=== PATIENT | female | born 1940 | race Caucasian/White ===

== ENCOUNTER 2023-12-04 11:09 | Emergency (ER) | payer MEDICARE, SELFPAY ==
--- NOTE | ~2023-12-04 | XR_ITS ---
XR chest 2V DATE: 12/04/2023 12:52 INDICATION: Cough TECHNIQUE: PA and lateral views COMPARISON: None FINDINGS: Heart size is within normal range. Aortic calcification. There is patchy infiltrate and/or atelectasis in both lower lung zones, greater on the left. Consider bilateral pneumonia versus aspiration pneumonitis. There is mild elevation right leaf of diaphragm. No pleural effusion or pulmonary venous congestion o r pneumothorax. Surgical clips, right upper quadrant, consistent with cholecystectomy. Diffuse idiopathic skeletal hyperostosis of the thoracic spine. IMPRESSION: Patchy bilateral lower lung infiltrates, left greater than right Reviewed, dictated and finalized at location A. [employer]
[2023-12-04 11:35] VITALS: BP 148/63; PULSE 83; RESP 20; TEMP 36.8; O2SAT 95
--- NOTE | 2023-12-04 12:05 | ED.URI ---
HPI - URI/Sore Throat General Chief Complaint: Upper Respiratory Infection Stated Complaint: Cough Time Seen by Provider: 12/04/23 12:32 Source: patient and RN notes reviewed Mode of arrival: ambulatory Limitations: no limitations History of Present Illness HPI Narrative: 83-year-old female presents with concern for productive cough intermittent chills. Intermittent shortness of breath and chest tightness. She reports coughing makes her ribs and back hurt. She reports general body aches, headache, intermittent diarrhea. Reports she had a negative COVID test at home. MD elicited complaint: cough Related Data Home Medications Medication Instructions Recorded Confirmed apixaban 5 mg tablet (Eliquis) 5 mg PO BID 11/25/22 12/04/23 gabapentin 300 mg capsule 300 mg PO BID 11/25/22 12/04/23 lenalidomide 5 mg capsule 5 mg PO DAILY 11/25/22 12/04/23 (Revlimid) tolterodine 4 mg capsule,extended 4 mg PO DAILY 11/25/22 12/04/23 release 24 hr amlodipine 10 mg tablet 10 mg DAILY 12/04/23 12/04/23 benzonatate 200 mg capsule 200 mg PO DAILY 12/04/23 12/04/23 daratumumab 20 mg/mL intravenous 20 mg IV MONTHLY 12/04/23 12/04/23 solution loperamide 2 mg capsule 2 mg PO DAILY 12/04/23 12/04/23 tramadol 50 mg DAILY 12/04/23 12/04/23 zolpidem 10 mg tablet 10 mg PO QHS 12/04/23 12/04/23 Allergies Allergy/AdvReac Type Severity Reaction Status Date / Time No Known Allergies Allergy Verified 11/26/22 08:02 Review of Systems Review of Systems: CONSTITUTIONAL: Reports malaise, chills, sweats EYES: Denies visual changes, redness, or discharge. ENT: Reports rhinorrhea, congestion CARDIOVASCULAR: Denies chest pain, palpitations, or edema. RESPIRATORY: Reports productive cough, dyspnea. GASTROINTESTINAL: Denies abdominal pain, nausea, vomiting, diarrhea SKIN: Denies rash or itching. MUSCULOSKELETAL: Denies myalgia. NEUROLOGIC: Denies headache. All systems reviewed & are unremarkable except as noted in HPI and below PMFSH Past Medical History Medical History (Updated 12/04/23 @ 13:07 by Moon Lucas NP) History of blood clots History of cancer IBS (irritable bowel syndrome) Surgical History Surgical History (Updated 11/26/22 @ 08:21 by Derian Hinton MD) History of cataract surgery History of hernia repair History of hip surgery Trochanteric debridement with removal of bone spurs 2009 and 2017 Family History Family History Sibling Malignant neoplasm of prostate Mother Patient's mother is , Onset Age: 92 Father Patient's father is , Onset Age: 92 Social History Social History Smoking status: Never smoker Alcohol intake: never Substance use type: does not use Living arrangements: alone Occupation/Education: retired Gender identity (if verbalized by the patient): Female Comments At time of signature, agree with nursing past medical, surgical, social and family history. There is no relevant family history pertinent to the presenting complaint Exam Narrative: GENERAL: Nontoxic-appearing, well-nourished, and in no acute distress. HEAD: Normocephalic EYES: PERRLA, conjunctivae clear ENT: Nares clear. Mucous membranes moist. TM pearly cagle with dull light reflex bilaterally; no tragal tenderness. Oropharynx not erythematous without lesions. Tonsils not enlarged and without exudate, no drooling, no hoarseness, no trismus, uvula midline. NECK: Supple. No lymphadenopathy CHEST: Rhonchi noted in bilateral lower lobes, breath sounds equal. No wheezing, rhonchi, rales, or stridor. No respiratory distress, speaks in full sentences. HEART: Regular rate and rhythm. No murmur heard. SKIN: Warm, dry, no rash. NEURO: Alert and oriented x3. PSYCH: Normal mood and affect Course Course Emergency Course: Patient is aware of diagnosis, understands and agre
== END 2023-12-04 13:12 | disposition home or self-care (01) ==
PROVIDERS: Emergency Provider Nurse Practitioner
DX: J18.9 Pneumonia, unspecified organism (principal); Z86.2 Personal history of diseases of the blood and blood-forming organs and certain disorders involving the immune mechanism; Z85.9 Personal history of malignant neoplasm, unspecified
CPT/HCPCS: 71046; 87804; 99213; G0463

== ENCOUNTER 2024-08-02 16:48 | Emergency (ER) | payer MEDICARE, SELFPAY ==
--- NOTE | ~2024-08-02 | XR_ITS ---
EXAMINATION: XR chest 2V DATE: 08/02/2024 17:26 INDICATION: Abnormal lung sounds right lower lobe. TECHNIQUE: Frontal and lateral views of the chest were obtained. 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 There is mild atelectasis in left mid and lower lung zones. Calcified right hilar and mediastinal lymph nodes are consistent with old granulomatous disease. No pleural effusion or pneumothorax. The heart size is normal. There is a moderate-sized hiatal hernia. Surgical clips in the right upper quadrant are likely from cholecystect parag. IMPRESSION: 1. Mild atelectasis in left mid and lower lung zones. 2. Moderate-sized hiatal hernia. Reviewed, dictated and finalized at location A.
[2024-08-02 17:00] VITALS: BP 144/104; PULSE 76; RESP 20; TEMP 37.7; O2SAT 89
--- NOTE | 2024-08-02 17:00 | ED.URI ---
HPI - URI/Sore Throat General Chief Complaint: Upper Respiratory Infection Stated Complaint: Sinus Time Seen by Provider: 08/02/24 17:01 Source: patient, RN notes reviewed and old records reviewed Mode of arrival: ambulatory Limitations: no limitations History of Present Illness HPI Narrative: Patient arrives with complaints of productive cough, fatigue. She reports symptoms have been present for about 1 week. She denies any fever, chills, sweats. She states ?I know I have pneumonia?. She is not in any distress, but does appear to be uncomfortable. She was the progress that she had a fever on arrival. Has not been taking anything for her symptoms Related Data Home Medications Medication Instructions Recorded Confirmed apixaban 5 mg tablet (Eliquis) 5 mg PO BID 11/25/22 08/02/24 gabapentin 300 mg capsule 300 mg PO BID 11/25/22 08/02/24 lenalidomide 5 mg capsule 5 mg PO DAILY 11/25/22 08/02/24 (Revlimid) tolterodine 4 mg capsule,extended 4 mg PO DAILY 11/25/22 08/02/24 release 24 hr amlodipine 10 mg tablet 10 mg DAILY 12/04/23 08/02/24 benzonatate 200 mg capsule 200 mg PO DAILY 12/04/23 08/02/24 daratumumab 20 mg/mL intravenous 20 mg IV MONTHLY 12/04/23 08/02/24 solution loperamide 2 mg capsule 2 mg PO DAILY 12/04/23 08/02/24 tramadol 50 mg DAILY 12/04/23 08/02/24 zolpidem 10 mg tablet 10 mg PO QHS 12/04/23 08/02/24 Allergies Allergy/AdvReac Type Severity Reaction Status Date / Time No Known Allergies Allergy Verified 08/02/24 17:00 Review of Systems Review of Systems: All systems reviewed & are unremarkable except as noted in HPI and below Constitutional: Constitutional: Reports no additional constitutional complaints ENT: Reports system reviewed and no additional complaints, except as documented and Reports as per HPI Cardiovascular: Cardiovascular: Reports as per HPI and Reports no additional cardiovascular complaints Respiratory: Respiratory: Reports as per HPI, Reports no additional respiratory complaints, Reports change in phlegm color, Reports chest congestion, Reports cough, Reports pain on inspiration and Reports pain with cough Gastrointestinal: Gastrointestinal: Reports no additional gastrointestinal complaints Musculoskeletal: Musculoskeletal: Reports myalgias PMFSH Past Medical History Medical History History of blood clots History of cancer IBS (irritable bowel syndrome) Surgical History Surgical History History of cataract surgery History of hernia repair History of hip surgery Trochanteric debridement with removal of bone spurs 2009 and 2016 Family History Family History Sibling Malignant neoplasm of prostate Mother Patient's mother is , Onset Age: 92 Father Patient's father is , Onset Age: 92 Social History Social History Smoking status: Never smoker Alcohol intake: never Substance use type: does not use Living arrangements: alone Occupation/Education: retired Gender identity (if verbalized by the patient): Female Comments At the time of my signature, I reviewed and agree with the nursing past medical, surgical, social, and family history. There is no relevant family history pertinent to the patient complaint. Exam Const: General: cooperative, no acute distress, alert, awake and uncomfortable; No acute distress Orientation/consciousness: oriented to person, oriented to place and oriented to time HENMT: Head: normal to inspection Mouth: Yes moist mucous membranes Resp: Effort & Inspection: normal respiratory effort and able to speak in complete sentences Auscultation: clear to auscultation bilaterally, no crackles, no rales, rhonchi right lower, no wheezes and diminished lung sounds on the lef
[2024-08-02 17:12] VITALS: PULSE 77; RESP 20; O2SAT 94
[2024-08-02 17:19] LABS: EDINFLUASCREEN Negative; EDINFLUBSCREEN Negative
[2024-08-02] MEDS: ACETAMINOPHEN 500 MG TABLET 1000 MG PO (17:34)
[2024-08-02 18:06] VITALS: BP 148/62; PULSE 74; RESP 20; TEMP 36.6
== END 2024-08-02 18:30 | disposition home or self-care (01) ==
PROVIDERS: Emergency Provider Nurse Practitioner Family
DX: U07.1 COVID-19 (principal); R09.82 Postnasal drip; Z86.2 Personal history of diseases of the blood and blood-forming organs and certain disorders involving the immune mechanism; Z85.9 Personal history of malignant neoplasm, unspecified; Z79.01 Long term (current) use of anticoagulants
CPT/HCPCS: 71046; 87426; 87804; 99213; A9270; G0463